=== PATIENT | female | born 2000 | race Caucasian/White ===

== ENCOUNTER 2023-01-05 11:25 | Emergency (ER) | payer SELFPAY ==
[2023-01-05 12:32] LABS: POTASSIUM,K 3.8 mmol/L (3.5-5.1)
== END 2023-01-05 14:34 | disposition left against medical advice (07) ==
LOC: MW.ED 11:25
DX: O20.0 Threatened abortion (principal)
CPT/HCPCS: 36415; 76817; 76817-26; 80053; 84702; 84703; 85025; 86900; 86901; 99284

== ENCOUNTER 2023-01-31 19:27 | Emergency (ER) | payer SELFPAY ==
[2023-01-31] MEDS ORDERED: Sodium Chloride 0.9% 10 ML Syringe FLUSH PRN ×2 (20:05)
[2023-01-31] MEDS ORDERED: Sodium Chloride 0.9% 2.5 ML Syringe FLUSH PRN ×2 (20:05)
[2023-01-31] MEDS ORDERED: Sodium Chloride 0.9% 1,000 ML IV ONE (20:05)
[2023-01-31 21:03] LABS: BASOPHILS PERCENT AUTO 0.3 % (0.0-1.5); EOSINOPHILS ABSOLUTE AUTO 0.1 K/uL (0.0-0.7); EOSINOPHILS PERCENT AUTO 1.1 % (0.0-7.0); HEMATOCRIT 34.2 % (36.0-46.0); LYMPHOCYTES ABSOLUTE AUTO 2.2 K/uL (0.6-2.4); LYMPHOCYTES PERCENT AUTO 19.1 % (16.0-40.0); MEAN CORPUSCULAR HEMOGLOBIN 30.9 pg (27.0-32.0); MEAN CORPUSCULAR HGB CONC 35.1 g/dL (31.0-37.0); MEAN CORPUSCULAR VOLUME 88.1 fL (80.0-98.0); MONOCYTES ABSOLUTE AUTO 0.6 K/uL (0.0-0.8); MONOCYTES PERCENT AUTO 5.5 % (0.0-15.0); NEUTROPHILS ABSOLUTE AUTO 8.5 K/uL (1.4-5.7); NRBC ABSOLUTE 0 K/uL; PLATELET COUNT,PLT 283 K/uL (150-400); RED BLOOD CELL COUNT 3.88 M/uL (4.30-5.90); WHITE BLOOD CELL COUNT,WBC 11.51 K/uL (4.0-11.0)
[2023-01-31 21:10] LABS: INR < 0.93 (0.86-1.11)
[2023-01-31 21:33] LABS: A/G RATIO 0.8 (0.9-1.6); BILIRUBIN TOTAL 0.1 mg/dL (0.2-1.0); CALCIUM 8.5 mg/dL (8.5-10.1); CREATININE 0.6 mg/dL (0.6-1.0); EST CRCL DRUG DOSING (CG) 113.88 mL/min; PROTEIN TOTAL,TP 6.6 g/dL (6.4-8.2)
[2023-01-31 21:36] LABS: BILIRUBIN,URINE NEGATIVE (NEGATIVE); COLOR,URINE YELLOW; GLUCOSE,URINE NEGATIVE (NEGATIVE); KETONES,URINE NEGATIVE (NEGATIVE); LEUKOCYTE ESTERASE,URINE NEGATIVE (NEGATIVE); NITRITE,URINE NEGATIVE (NEGATIVE); OCCULT BLOOD,URINE LARGE (NEGATIVE); PH,URINE 7.5 (5.0-8.0); PROTEIN,URINE NEGATIVE (NEGATIVE); UROBILINOGEN,URINE 0.2 EU/dL (<2.0)
[2023-01-31 21:48] LABS: APPEARANCE,URINE HAZY; EPITHELIAL CELLS,URINE FEW (NONE-FEW); WBC,URINE 0-2 (0-5/HPF)
[2023-01-31 21:49] LABS: BACTERIA,URINE FEW (NEGATIVE)
[2023-01-31] MEDS ORDERED: Nitrofurantoin Monohydrate/Macrocrystalline 100 MG Cap PO ONE (22:04)
== END 2023-01-31 23:15 | disposition home or self-care (01) ==
LOC: MW.ED 19:27
DX: O20.0 Threatened abortion (principal); Z3A.16 16 weeks gestation of pregnancy
CPT/HCPCS: 36415; 76815; 80053; 81001; 84702; 85025; 85610; 86850; 86900; 86901; 99284; A9270; J3490; J7030

== ENCOUNTER 2023-06-18 03:25 | Inpatient (IN) | payer SELFPAY ==
[2023-06-18] MEDS ORDERED: Ampicillin 2 GM in Sodium Chloride 0.9% 100 ML IV ONE (03:55)
[2023-06-18 05:08] LABS: AMPHETAMINES SCREEN, URINE NEGATIVE (CUTOFF=500); BARBITURATE SCREEN,URINE NEGATIVE (CUTOFF=200); BENZODIAZEPINES SCREEN,URINE NEGATIVE (CUTOFF=150); BUPRENORPHINE SCREEN,URINE NEGATIVE (CUTOFF=10); METHADONE SCREEN, URINE NEGATIVE (CUTOFF=200); METHAMPHETAMINES SCREEN, URINE NEGATIVE (CUTOFF=500); OXYCODONE SCREEN,URINE NEGATIVE (CUT0FF=100); PCP SCREEN,URINE NEGATIVE (CUTOFF=25); PROPOXYPHENE SCREEN,URINE NEGATIVE (CUTOFF=300); THC SCREEN,URINE 20 NG/ML NEGATIVE (CUTOFF=50)
[2023-06-18 05:37] LABS: HEMATOCRIT 29.1 % (37.0-47.0); HEMOGLOBIN 9.5 g/dL (12.0-16.0); MEAN CORPUSCULAR HEMOGLOBIN 26.7 pg (28.0-32.0); MEAN CORPUSCULAR HGB CONC 32.6 g/dL (32.0-36.0); MEAN CORPUSCULAR VOLUME 81.7 fL (83.0-99.0); MEAN PLATELET VOLUME 12.7 fL (9.4-12.3); PLATELET COUNT,PLT 243 K/uL (150-400); RED BLOOD CELL COUNT 3.56 M/uL (4.10-5.30); WHITE BLOOD CELL COUNT,WBC 13.58 K/uL (3.9-11.3)
[2023-06-18] MEDS ORDERED: Methylergonovine 0.2 MG/1 ML Amp IM PRN (06:51)
[2023-06-18] MEDS ORDERED: Sodium Chloride 0.9% 2.5 ML Syringe FLUSH PRN (06:51)
[2023-06-18] MEDS ORDERED: Ondansetron 4 MG/2 ML SDV IVPUSH PRN (06:51)
[2023-06-18] MEDS ORDERED: Misoprostol 200 MCG Tab PO PRN (06:51)
[2023-06-18] MEDS ORDERED: Sodium Chloride 0.9% 20 ML SDV IV PRN (06:51)
[2023-06-18] MEDS ORDERED: Lidocaine 1% 50 ML MDV INJECT PRN (06:51)
[2023-06-18] MEDS ORDERED: Carboprost Tromethamine 250 MCG/1 mL Vial IM PRN (06:51)
[2023-06-18] MEDS ORDERED: Water For Irrigation,Sterile 1,000 ML Container IRR PRN (06:51)
[2023-06-18] MEDS ORDERED: Tranexamic Acid IN NACL,ISO-OS 1,000 MG in Premix Bag 1 BAG IV PRN ×2 (06:51)
[2023-06-18] MEDS ORDERED: Sodium Chloride 0.9% 10 ML Syringe FLUSH PRN (06:51)
[2023-06-18] MEDS ORDERED: Lactated Ringers 1,000 ML IV SCH (07:00)
[2023-06-18] MEDS ORDERED: Oxytocin/0.9 % Sodium Chloride 30 UNIT/500 ML BAG IV SCH (07:00)
[2023-06-18 07:10] LABS: APPEARANCE,URINE SLT CLOUDY; BILIRUBIN,URINE NEGATIVE (NEGATIVE); COLOR,URINE YELLOW; GLUCOSE,URINE NEGATIVE (NEGATIVE); KETONES,URINE NEGATIVE (NEGATIVE); LEUKOCYTE ESTERASE,URINE MODERATE (NEGATIVE); NITRITE,URINE NEGATIVE (NEGATIVE); OCCULT BLOOD,URINE MODERATE (NEGATIVE); PH,URINE 6.5 (5.0-8.0); PROTEIN,URINE NEGATIVE (NEGATIVE); UROBILINOGEN,URINE 0.2 EU/dL (<2.0)
[2023-06-18 07:12] LABS: BACTERIA,URINE 1+ (NEGATIVE); EPITHELIAL CELLS,URINE MODERATE (NONE-FEW); RBC,URINE 0-2 (0-2/HPF); WBC,URINE 20-25 (0-5/HPF)
[2023-06-18] MEDS ORDERED: Ampicillin 1 GM Vial IM SCH (08:00)
[2023-06-18] MEDS: Ampicillin 1 GM in Sodium Chloride 0.9% 50 ML IV SCH ×4 (08:35→20:31)
[2023-06-18] MEDS ORDERED: Ampicillin 1 GM Vial ONE (11:45)
[2023-06-19] MEDS: Ampicillin 1 GM in Sodium Chloride 0.9% 50 ML IV SCH ×3 (00:33→08:39)
[2023-06-19] MEDS ORDERED: Misoprostol 200 MCG Tab PO PRN (00:49)
[2023-06-19] MEDS ORDERED: Tranexamic Acid IN NACL,ISO-OS 1,000 MG in Premix Bag 1 BAG IV PRN ×2 (00:49)
[2023-06-19] MEDS ORDERED: Carboprost Tromethamine 250 MCG/1 mL Vial IM PRN (00:49)
[2023-06-19] MEDS ORDERED: Lidocaine 1% 50 ML MDV INJECT PRN (00:49)
[2023-06-19] MEDS ORDERED: Methylergonovine 0.2 MG/1 ML Amp IM PRN (00:49)
[2023-06-19] MEDS ORDERED: Ibuprofen 800 MG Tab PO PRN (13:08)
[2023-06-19] MEDS ORDERED: Benzocaine/Menthol 20%-0.5% Spray 78 GM Cannister TOP PRN (13:08)
[2023-06-19] MEDS ORDERED: Witch Hazel Medicated Pads 40/Jar TOP PRN (13:08)
[2023-06-19] MEDS ORDERED: Acetaminophen 500 MG Tab PO PRN ×2 (13:08)
[2023-06-19] MEDS ORDERED: Ibuprofen 400 MG Tab PO PRN (13:08)
[2023-06-19] MEDS ORDERED: Bisacodyl 10 MG Supp RECTAL PRN (13:08)
[2023-06-19] MEDS ORDERED: Docusate Sodium 100 MG Cap PO PRN (13:08)
[2023-06-19] MEDS ORDERED: Lanolin 100% Cream 7 GM Tube TOP PRN (13:08)
[2023-06-19] MEDS ORDERED: Sodium Ferric Gluconate Cmplex 125 MG in Sodium Chloride 0.9% 100 ML IV STA ×2 (13:18→13:33)
[2023-06-19] MEDS ORDERED: Ondansetron 4 MG/2 ML SDV IVPUSH PRN (13:19)
[2023-06-20 06:38] LABS: HEMATOCRIT 24.7 % (37.0-47.0)
== END 2023-06-20 17:26 | disposition home or self-care (01) | DRG 807 ==
LOC: MW.OBCHECK 03:25 → MW.OB 03:32 → MW.OBCHECK 06-19 00:49 → OBSVTOIN 06-19 12:40 → MW.OB 06-19 15:36
PROVIDERS: ADMIT Obstetrics & Gynecology; ATTEND Obstetrics & Gynecology
PROC: 10E0XZZ Delivery of Products of Conception, External Approach (ICD-10-PCS; principal; 2023-06-19)
DX: O42.113 Preterm premature rupture of membranes, onset of labor more than 24 hours following rupture, third trimester (principal); Z37.0 Single live birth; O99.02 Anemia complicating childbirth; D64.9 Anemia, unspecified; Z3A.36 36 weeks gestation of pregnancy; Z53.29 Procedure and treatment not carried out because of patient's decision for other reasons
CPT/HCPCS: 36415; 76818; 76818-26; 80305-QW; 81001; 85014; 85018; 85027; 86592; 86762; 86803; 86850; 86900; 86901; 87086; 87340; 87389; J0290; J2405; J2590; J2916; J3490